=== PATIENT | male | born 1980 | race Caucasian/White ===

== ENCOUNTER 2019-07-18 11:22 | Emergency (ER) | payer MEDICAID, SELFPAY ==
[2019-07-18 11:31] VITALS: BP 124/69; PULSE 65; TEMP 36.8; O2SAT 99
[2019-07-18 12:16] LABS: Bilirubin Negative (Negative); Blood Negative (Negative); Clarity Clear (Clear); Glucose Negative (Negative); Ketones Negative (Negative); Leukocyte Esterase Negative (Negative); Nitrite Negative (Negative); Urobilinogen 0.2 EU/dL (Up TO 0.2); pH 6.5 (5-8)
[2019-07-19 15:17] LABS: Chlamydia Result Negative (Negative); GC Result Negative (Negative)
--- NOTE | 2019-07-20 11:35 | ED.GENADUL_ITS ---
Discharge Plan Disposition Patient Disposition: HOME Condition: Stable Discharge Details Chief Complaint: Urinary Clinical Impression: Dysuria Primary Care Provider: Catarino Arita ED Provider: Amy Godwin Home Meds and New Rx's Prescriptions: No Action No Known Home Meds RF: 0 Discharge Instructions Instructions: Dysuria (ED) Additional Instructions: Follow-up with your primary care doctor tomorrow as discussed. Feel free to call the emergency room for urinalysis results. You prefer discharge without your results today. Phone number is [phone]. Drink plenty of fluids. Rest activities as tolerated. Return to the emergency room for any increase in abdominal pain, back pain, difficulty or increased painful urination, blood in your urine, testicular scrotal complaints or worsening symptoms if needed sooner. Discharge Data Discharge Date/Time-TO BE ENTERED AT DEPARTURE: 07/18/19 12:12 Medical Decision Making Is a otherwise healthy 39-year-old patient presenting to the emergency room today for a complaint of dysuria. Denies hematuria. Patient reports burning with urination while urinating and a slight dribble of urination after completing his stream which is atypical. Patient denies any obvious penile discharge. Patient denies any testicular pain or swelling. Patient's physical exam is benign. Patient spoke with his PCP over the phone who recommended he have a urinalysis test. Patient has requested to be discharged without any results and would prefer to follow-up with his PCP over the phone for results. Patient denies associated nominal or back pain. Denies any ill feeling, fever, chills, nausea, vomiting. Patient reports feeling at his baseline at this time. Patient did report an isolated transient episode of left inguinal pain yesterday which entirely resolved and lasted only approximately 1 hour. Patient denies any upper respiratory symptoms. Again no ill feeling or malaise at this time. Plan to obtain urinalysis as well as GC chlamydia testing and urine culture. Patient agrees with plan of care again request discharge prior to any results. Patient provided ER phone number for over the phone follow-up of his urinalysis tomorrow or later today if desired. Again patient's preference is to follow-up with his PCP for results. The patient was stable and requested discharge. Prior to discharge, my usual and customary return precautions were reviewed with the patient - this included follow-up instructions and reasons to return to the Emergency Department if conditions worsens, does not improve as expected, or other new concerns arise. HPI General Date/Time Provider Initiated Documentation: 07/18/19 11:42 . HPI Narrative: This is a very pleasant 39-year-old patient presenting to the emergency room for complaints of dysuria which developed today. Patient reports he awoke and had burning with urination this morning which improved after urinating. Patient reports he has urinated since and dysuria was not quite as uncomfortable however he does report after urination he had a few drips of fluid which was somewhat atypical. Patient denies any hematuria, urgency or frequency. Patient denies abdominal or back pain. Patient reports no recent sexual activity in the last 5 weeks. Denies testicular pain, no scrotal swelling. He does report an area of inguinal discomfort in the left groin which was transient noted yesterday and has fully improved. Patient denies any fever, chills, nausea, vomiting. He spoke with his PCP who recommended he present and provide a urinalysis. Patient reports he does not wish to stay for urinalysis results but rather follow-up with his PCP tomorrow over the phone. Patient denies any history of similar. Patient does report a history of STD in his teenage years which was treated appropriately and has had no persistent symptoms or similar symptoms since. Patient denies any injury or trauma. No other concerns or complaints at this time. At this time patient feels at his baseline. Related Data Home Medications Medication Instructions Recorded Confirmed Unknown [No Known Home Meds] 07/18/19 07/18/19 Allergies Allergy/AdvReac Type Severity Reaction Status Date / Time shellfish derived Allergy Unknown Unverified 07/18/19 11:36 General Stated Complaint: Urinary PATY: 3 Review of Systems All systems reviewed & are unremarkable except as noted in HPI and below Constitutional Constitutional: Denies chills, Denies fatigue, Denies fever(s), Denies headache(s) and Denies malaise ENT Ears, Nose, Mouth, and Throat: Denies headache(s) Gastrointestinal Gastrointestinal: Denies abdominal pain, Denies diarrhea, Denies nausea and Denies vomiting Genitourinary Genitourinary: Denies hematuria, Denies oliguria, Denies genital lesions, Denies genital pain, Reports dysuria, Denies flank pain, Denies scrotal swelling, Denies testicular pain, Denies urinary frequency, Denies urinary hesitancy and Denies urinary incontinence Musculoskeletal Musculoskeletal: Denies back pain Neurologic Neurologic: Denies headache(s) Endocrine Endocrine: Denies fatigue [facility] Social History Smoking/Tobacco Use Status: Never Alcohol Intake: current Alcohol Intake frequency: holidays/special occasions only Drug use: Rarely Substance use type: does not use Do you feel safe at home: Yes Do you feel safe in your relationship?: Yes Exam Narrative Exam Narrative: CONST: Healthy appearing patient, in no acute distress. Well hydrated. Alert and oriented. GI: Abdomen is soft, nontender. No peritoneal signs, rebound or guarding. Back: No CVA tenderness noted bilaterally. : Patient has no genitourinary lesions present. inguinal lymphadenopathy present bilaterally, scant, nontender. No obvious hernia present on exam. No testicular pain with palpation. No epididymal pain. No asymmetric swelling present. No obvious penile discharge present. SKIN: Normal. Dry. No rashes. NEURO: Alert and awake. Speech clear. PSYCH: Normal affect. Cooperative. Course Vital Signs Vital signs: Vital Signs Temperature 36.8 C 07/18/19 11:31 Pulse 65 07/18/19 11:31 Blood Pressure 124/69 07/18/19 11:31 Pulse Oximetry 99 07/18/19 11:31 Temperature 36.8 C 07/18/19 11:31 Temperature Source Temporal Artery Scan 07/18/19 11:31 Pulse 65 07/18/19 11:31 Respiratory Effort Non-Labored 07/18/19 11:35 Blood Pressure 124/69 07/18/19 11:31 Blood Pressure Position Sitting 07/18/19 11:31 Pulse Oximetry 99 07/18/19 11:31 Oxygen Delivery Method Room Air 07/18/19 11:31 Oxygen Flow Rate 0 07/18/19 11:31 Pain Level 7 07/18/19 11:44 Lab/Test Results Lab/Test Results: 07/18/19 11:40 Urine - Clean Catch Urine Culture - Preliminary Gram Positive [facility] Laboratory Tests Range/Units 07/18/19 11:40 Urine Color (Yellow) Yellow Urine Clarity (Clear) Clear Urine pH (5-8) 6.5 Ur Specific [place] (1.005-1.025) 1.020 Urine Protein (Negative) mg/dL Negative Urine Ketones (Negative) mg/dL Negative Urine Blood (Negative) Negative Urine Nitrite (Negative) Negative Urine Bilirubin (Negative) Negative Urine Urobilinogen (Up TO 0.2) EU/dL 0.2 Ur Leukocyte Esterase (Negative) Negative Urine Glucose (Negative) mg/dL Negative
== END 2019-07-18 12:12 | disposition home or self-care (01) ==
PROVIDERS: Emergency Provider Physician Assistant; PCP Emergency Medicine
DX: R30.0 Dysuria (principal)
CPT/HCPCS: 87491; 87591; 99282; 81003; 87086; 99283

== ENCOUNTER 2019-10-08 14:57 | Outpatient (CLI) | payer MEDICAID, SELFPAY ==
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
== END 2019-10-08 15:17 ==
PROVIDERS: PCP Emergency Medicine; Referring Provider Emergency Medicine; Visit Provider Physician Assistant
DX: M25.562 Pain in left knee (principal); M17.12 Unilateral primary osteoarthritis, left knee
CPT/HCPCS: 73562

== ENCOUNTER 2019-10-14 09:17 | Outpatient (CLI) | payer MEDICAID, SELFPAY ==
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
== END 2019-10-14 09:37 ==
PROVIDERS: PCP Emergency Medicine; Visit Provider Student in an Organized Health Care Education/Training Program
DX: M94.262 Chondromalacia, left knee (principal); M25.462 Effusion, left knee
CPT/HCPCS: 73721

== ENCOUNTER 2020-04-13 08:38 | Outpatient (CLI) | payer MEDICAID, SELFPAY ==
[2020-04-14 22:17] LABS: Patient Race White; SARS-CoV-2 RNA Undetected (Undetected); SARS-CoV-2 Specimen Source Nasal
== END 2020-04-13 08:58 ==
PROVIDERS: PCP Emergency Medicine; Visit Provider Emergency Medicine
DX: Z11.59 Encounter for screening for other viral diseases (principal)
CPT/HCPCS: U0003

== ENCOUNTER 2020-05-01 03:31 | Outpatient (CLI) | payer MEDICAID, SELFPAY ==
[2020-05-04 21:27] LABS: COVID-19 RT-PCR Result NEGATIVE (Negative)
== END 2020-05-01 03:51 ==
PROVIDERS: PCP Emergency Medicine; Visit Provider Emergency Medicine
DX: Z20.828 Contact with and (suspected) exposure to other viral communicable diseases (principal)
CPT/HCPCS: U0003

== ENCOUNTER 2020-11-23 09:58 | Outpatient (CLI) | payer MEDICAID, SELFPAY ==
[2020-11-24 14:14] LABS: COVID-19 RT-PCR UVMMC Result Negative (Negative)
== END 2020-11-23 09:59 | disposition home or self-care (01) ==
LOC: LBO 09:58
PROVIDERS: PCP Emergency Medicine; Visit Provider Emergency Medicine
DX: Z20.822 Contact with and (suspected) exposure to COVID-19 (principal)
CPT/HCPCS: U0003

== ENCOUNTER 2021-03-09 14:05 | Outpatient (REF) | payer MEDICAID, SELFPAY ==
[2021-03-09 19:31] LABS: Abs Immature Grans 0.02 10^3/uL (0.0-0.06); Absolute Basophil Count 0.04 10^3/uL (0.0-0.2); Absolute Eosinophil Count 0.11 10^3/uL (0.0-0.7); Absolute Lymphocyte Count 2.07 10^3/uL (1.2-3.4); Absolute Monocyte Count 1.01 10^3/uL (0.1-0.8); Absolute Neutrophil Count 4.98 10^3/uL (1.2-6.7); Basophils % 0.5; Eosinophils % 1.3; HCT 41.3 % (40.0-50.0); HGB 13.6 g/dL (13.5-17.5); Immature Grans % 0.2; Lymphocytes % 25.2; MCH 29.7 pg (27.0-33.0); MCHC 32.9 % (32.0-36.0); MCV 90.2 fL (80-95); MPV 9.8 fL (8.0-11.0); Monocytes % 12.3; Neutrophils % 60.5; Nucleated RBC 0 %; Platelet Count 313 10^3/uL (130-400); RBC 4.58 10^6/uL (4.36-5.78); RDW 13.8 % (11.8-14.1); RDW-SD 45.5 fL; WBC 8.23 10^3/uL (4.4-10.8)
[2021-03-09 19:46] LABS: ALT 52 U/L (16-63); AST 20 U/L (15-37); Alkaline Phosphatase 91 U/L (46-116); Amylase 49 U/L (25-115); BUN 17 mg/dL (7-18); Bilirubin, Total 0.2 mg/dL (0.2-1.0); C-Reactive Protein 1.04 mg/dL (0.0-0.3); CO2 27.9 mmol/L (21.0-32.0); CREATININE 0.9 mg/dL (0.70-1.30); Calcium 8.3 mg/dL (8.5-10.1); Chloride 102 mmol/L (98-107); Glucose 107 mg/dL (74-106); Lipase 158 U/L (73-393); Potassium 3.8 mmol/L (3.5-5.1); Total Protein 5.8 g/dL (6.4-8.2)
[2021-03-09 21:02] LABS: Sodium 141 mmol/L (136-145)
[2021-03-09 21:03] LABS: Anion Gap 11.1 mmol/L (3-11)
== END 2021-03-09 14:06 | disposition home or self-care (01) ==
LOC: LBN 14:05
PROVIDERS: PCP Emergency Medicine; Visit Provider Emergency Medicine
DX: R10.9 Unspecified abdominal pain (principal); R10.13 Epigastric pain; R63.4 Abnormal weight loss
CPT/HCPCS: 80053; 83690; 82150; 85025; 86140

== ENCOUNTER 2021-03-22 19:01 | Outpatient (REF) | payer MEDICAID, SELFPAY | END 2021-03-22 19:02 | disposition home or self-care (01) | LOC: LBN 19:01 | PROVIDERS: PCP Emergency Medicine; Visit Provider Family Medicine | DX: R10.9 Unspecified abdominal pain (principal); A05.9 Bacterial foodborne intoxication, unspecified | CPT/HCPCS: 87177 ==

== ENCOUNTER 2021-03-23 01:10 | Outpatient (CLI) | payer MEDICAID, SELFPAY ==
--- NOTE | 2021-03-23 07:45 | DI.CT_ITS ---
Exam(s) CT ABDOMEN PELVIS W EXAM: CT ABDOMEN PELVIS W CLINICAL HISTORY: mid abd pain,ABNL WT LOSS,R63.4,R10.9 TECHNIQUE: Imaging Protocol: Axial computed tomography images with coronal and sagittal reformatted images were created and reviewed CONTRAST MATERIAL: Intravenous: Omnipaque 350 Contrast volume:100 mL Oral: Yes COMPARISON: No exams were available for comparison FINDINGS: ABDOMEN: Lung Bases: Normal where visualized. Liver: Normal density. No measurable mass. Portal, Superior Mesenteric, and Splenic Veins: Unremarkable. Gallbladder and Biliary Tract: No radiodense calculus or dilation. Pancreas: Normal density, no abnormal calcifications or inflammatory process. Spleen: Normal. Adrenals: No masses seen. Kidneys: Normal size, contour and axis. No radiodense stones or obstructive uropathy. No masses seen. Abdominal Aorta: Abdominal portion non-dilated. Bowel: No obstruction or bowel wall thickening. No evidence of appendicitis. There is a large amount of stool throughout the colon consistent with constipation. Peritoneal Cavity: No ascites, collection or mesenteric inflammatory response. No free air. Lymph Nodes: There are mildly prominent lymph nodes seen in the mesentery. The largest has a short a xis diameter of 1.5 cm. Bones: Within normal limits for the patient's age. Soft Tissues: Unremarkable. PELVIS: Bladder: Symmetric distention, no gross wall thickening. Portion of the urinary bladder anteriorly ap pears to extend into a small left inguinal hernia. Reproductive Organs: Unremarkable as visualized. Lymph Nodes: Within normal limits. Bones: Within normal limits for the patient's age. IMPRESSION: 1. Mildly enlarged nonspecific mesenteric lymph nodes. This can be seen with a infection or inflamma tory process including mesenteric adenitis. 2. Findings suggestive of constipation. RADIATION DOSE DELIVERED: 629.09mGy.cm Total DLP DATA REPOSITORY: All CT scans at this facility are submitted to the National Radiology Data Registry (NRDR) Dose Index Registry (DIR) with the [employer] (A[employer]). RADIATION OPTIMIZATION: All CT scans at this facility use at least one of these dose optimization te chniques: automated exposure control; mA and/or kV adjustment per patient size (includes targeted exa ms where dose is matched to clinical indication); or iterative reconstruction.
[2021-03-23] MEDS: Breeza Beverage 473 ML BTL 946 ML PO (13:42)
[2021-03-23] MEDS: Normal Saline - Diluent 50 ML VIAL IV (13:42)
[2021-03-23] MEDS: Omnipaque 350 MG/ML 100 ML BTL IJ (13:43)
== END 2021-03-23 01:30 ==
PROVIDERS: PCP Emergency Medicine; Visit Provider Emergency Medicine
DX: R10.9 Unspecified abdominal pain (principal); R63.4 Abnormal weight loss; K59.09 Other constipation; R59.0 Localized enlarged lymph nodes
CPT/HCPCS: 74177; J3490

== ENCOUNTER 2021-03-23 16:42 | Outpatient (REF) | payer MEDICAID, SELFPAY | END 2021-03-23 16:43 | disposition home or self-care (01) | LOC: NCHCN 16:42 | PROVIDERS: PCP Emergency Medicine; Visit Provider Family Medicine | DX: A05.9 Bacterial foodborne intoxication, unspecified (principal); R10.9 Unspecified abdominal pain | CPT/HCPCS: 87177 ==

== ENCOUNTER 2021-07-28 13:41 | Outpatient (CLI) | payer MEDICAID, SELFPAY ==
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
== END 2021-07-28 13:42 | disposition home or self-care (01) ==
LOC: DIORS 13:41
PROVIDERS: PCP Emergency Medicine; Visit Provider Student in an Organized Health Care Education/Training Program
DX: M25.512 Pain in left shoulder (principal); M19.012 Primary osteoarthritis, left shoulder; Z98.890 Other specified postprocedural states
CPT/HCPCS: 73030

== ENCOUNTER → 2023-08-25 00:25 | Outpatient (CLI) | payer MEDICAID, SELFPAY ==
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
== END ==
PROVIDERS: PCP Nurse Practitioner Family; Visit Provider Student in an Organized Health Care Education/Training Program
DX: M23.91 Unspecified internal derangement of right knee (principal); M25.561 Pain in right knee
CPT/HCPCS: 73721

== ENCOUNTER 2023-08-29 14:41 | Outpatient (CLI) | payer MEDICAID, SELFPAY ==
--- NOTE | 2023-08-29 13:30 | DI.RAD_ITS ---
Exam(s) XR KNEE RT 3V AP,LAT,NASIR EXAM: XR KNEE RT 3V AP,LAT,NASIR CLINICAL HISTORY: RIGHT KNEE PAIN. TECHNIQUE: 2D digital imaging was performed. Three views. COMPARISON: MR MR LOWER JOINT RT WO from 08/25/2023 FINDINGS: BONES: No acute fracture is present. No bony destructive lesion is seen. Enthesophyte upper pole pa tella. Minimal spurring at the tibial spines. JOINTS: The knee is normally aligned. No joint effusion is seen. Joint spaces are maintained. SOFT TISSUE: Normal. IMPRESSION: Minimal degenerative changes. DATA REPOSITORY: RADIATION DOSE DELIVERED:
== END 2023-08-29 14:42 | disposition home or self-care (01) ==
LOC: DIORS 14:42
PROVIDERS: PCP Nurse Practitioner Family; Visit Provider Student in an Organized Health Care Education/Training Program
DX: M17.11 Unilateral primary osteoarthritis, right knee
CPT/HCPCS: 73562

== ENCOUNTER 2025-01-15 10:50 | Outpatient (CLI) | payer BC, SELFPAY ==
--- NOTE | 2025-01-15 10:45 | RT.EKG_ITS ---
APPROVED REPORT Exam: Resting ECG Reason for Exam: Chest pain Patient Location: O HR:61 bpm ECG Measurements Heart Rate 61 AXIS ID 181 P 77 QRSd 103 QRS 81 QT 410 T 38 QTc 413 Conclusion Sinus rhythm...normal P axis, V-rate 50- 99 Normal Electrocardiogram
== END 2025-01-15 10:51 | disposition home or self-care (01) ==
LOC: DI.CM 10:50
PROVIDERS: PCP Nurse Practitioner Family; Visit Provider Family Medicine
DX: Z71.89 Other specified counseling (principal)
CPT/HCPCS: 93010

== ENCOUNTER 2025-01-15 11:03 | Outpatient (CLI) | payer BC, SELFPAY ==
[2025-01-15 12:31] LABS: Hemoglobin A1C 5.8 % (<5.7)
[2025-01-15 12:45] LABS: ALT 70 U/L (16-63); AST 30 U/L (15-37); Albumin 4.0 g/dL (3.4-5.0); Alkaline Phosphatase 89 U/L (46-116); Anion Gap 10.4 mmol/L (3-11); BUN 24 mg/dL (7-18); Bilirubin, Total 0.5 mg/dL (0.2-1.0); CO2 29.6 mmol/L (21.0-32.0); Calcium 8.9 mg/dL (8.5-10.1); Calculated LDL 162 mg/dL (<100); Chloride 101 mmol/L (98-107); Cholesterol 240 mg/dL (<200); Estimated GFR 85.95 (mL/min/1.73m2); Glucose 114 mg/dL (74-106); HDL Cholesterol 64 mg/dL (>or=40); Potassium 3.8 mmol/L (3.5-5.1); Sodium 141 mmol/L (136-145); TSH (W/Ref FT4) 3.32 uIU/mL (0.36-3.74); Total Protein 7.2 g/dL (6.4-8.2); Triglyceride 74 mg/dL (<150)
[2025-01-17 16:43] LABS: Apolipoprotein A1, S 167 mg/dL (>=120); Apolipoprotein B, S 104 mg/dL (See Comment); Apolipoprotein B/A 1 ratio 0.6 (See Comment)
== END 2025-01-15 11:04 | disposition home or self-care (01) ==
LOC: LOS 11:03
PROVIDERS: PCP Family Medicine; Referring Provider Family Medicine; Visit Provider Family Medicine
DX: R73.01 Impaired fasting glucose (principal); Z00.01 Encounter for general adult medical examination with abnormal findings; E03.9 Hypothyroidism, unspecified; Z00.00 Encounter for general adult medical examination without abnormal findings; Z91.89 Other specified personal risk factors, not elsewhere classified; Z13.6 Encounter for screening for cardiovascular disorders; Z11.59 Encounter for screening for other viral diseases
CPT/HCPCS: 36415; 80053; 80061; 82172; 83695; 86803; 83036; 84443

== ENCOUNTER 2025-02-21 16:26 | Outpatient (REF) | payer BC, SELFPAY ==
[2025-02-23 11:40] LABS: Campylobacter PCR Negative (Negative); Shiga Toxin PCR Negative (Negative); Shigella/Enteroinvasive Ecoli Negative (Negative)
== END 2025-02-21 16:27 | disposition home or self-care (01) ==
LOC: LBN 16:26
PROVIDERS: PCP Family Medicine; Visit Provider Family Medicine
DX: R10.9 Unspecified abdominal pain (principal)
CPT/HCPCS: 87015; 87269; 87272; 87505